=== PATIENT | male | born 1940 | race Caucasian/White ===

== ENCOUNTER 2018-10-29 05:30 | Day surgery (SDC) | payer OTHER | END 2018-10-29 13:00 | disposition home or self-care (01) | LOC: CIR.AMB 05:30 | DX: D12.3 Benign neoplasm of transverse colon (principal); K64.2 Third degree hemorrhoids ==

== ENCOUNTER 2019-07-01 05:30 | Day surgery (SDC) | payer OTHER | END 2019-07-01 10:10 | disposition home or self-care (01) | LOC: AMB-ENDOS 05:30 → CIR.AMB 12:15 → AMB-ENDOS 12:15 | DX: D12.3 Benign neoplasm of transverse colon (principal); K57.30 Diverticulosis of large intestine without perforation or abscess without bleeding; K64.1 Second degree hemorrhoids ==

== ENCOUNTER 2020-06-29 09:50 | Day surgery (SDC) | payer OTHER | END 2020-06-29 17:00 | disposition home or self-care (01) | LOC: AMB-ENDOS 09:50 | PROVIDERS: ATTEND Colon & Rectal Surgery | DX: D12.3 Benign neoplasm of transverse colon (principal); Z20.828 Contact with and (suspected) exposure to other viral communicable diseases; K64.1 Second degree hemorrhoids ==

== ENCOUNTER → 2021-02-19 08:00 | Outpatient (CLI) | payer OTHER | END | disposition home or self-care (01) | LOC: LAB 08:00 → ADM 14:00 → EDSTATUS 02-22 14:00 → AMB-ENDOS 02-22 14:00 | PROVIDERS: ATTEND Colon & Rectal Surgery | DX: U07.1 COVID-19 (principal); D12.3 Benign neoplasm of transverse colon; Z86.010 Personal history of colon polyps; K92.1 Melena ==

== ENCOUNTER 2021-04-19 06:20 | Day surgery (SDC) | payer OTHER | END 2021-04-19 13:50 | disposition home or self-care (01) | LOC: AMB-ENDOS 06:20 | PROVIDERS: ATTEND Colon & Rectal Surgery | DX: D12.3 Benign neoplasm of transverse colon (principal); K64.0 First degree hemorrhoids ==